=== PATIENT | female | born 1995 | race Hispanic/Latino ===

== ENCOUNTER 2020-07-20 08:16 | Emergency (ER) | payer OTHER ==
[~2020-07-20] VITALS: Ht 170.2 cm; Wt 81.2 kg
[2020-07-20] MEDS ORDERED: ZOLO100T PO (08:24)
[2020-07-20] MEDS ORDERED: TRAZ-189 PO (08:24)
[2020-07-20 09:06] LABS: APPEARANCE, URINE CLEAR (CLEAR); BACTERIA, URINE AUTO NEGATIVE (NEGATIVE); BILIRUBIN, URINE AUTO NEGATIVE (NEGATIVE); BLOOD, URINE BLOOD 3+ (NEGATIVE); COLOR, URINE YELLOW (YELLOW); GLUCOSE, URINE (UA) AUTO NEGATIVE (NEGATIVE); KETONE, URINE AUTO NEGATIVE (NEGATIVE); LEUKOCYTE ESTERASE, URINE AUTO NEGATIVE (NEGATIVE); MUCUS, URINE SMALL (NEGATIVE); NITRITE, URINE AUTO NEGATIVE (NEGATIVE); PROTEIN, URINE AUTO 1+ mg/dL (NEGATIVE); RBC, URINE AUTO 5 /HPF (0-3); SPECIFIC GRAVITY URINE AUTO 1.021 (1.002-1.035); SQUAMOUS EPITHELIAL CELL UR AU 2 /HPF (0-6); UROBILINOGEN, URINE AUTO 0.2 mg/dL (0.0-2.0); WBC, URINE AUTO 0 /HPF (0-3)
[2020-07-20 09:51] LABS: RSV AMPLIFICATION NEGATIVE (NEGATIVE)
[2020-07-20 10:48] VITALS: O2SAT 98
[2020-07-20 11:39] VITALS: BP 121/80
== END 2020-07-20 11:40 | disposition home or self-care (01) ==
LOC: M ED 08:16
DX: O98.511 Other viral diseases complicating pregnancy, first trimester (principal); U07.1 COVID-19; O99.341 Other mental disorders complicating pregnancy, first trimester; F32.9 Major depressive disorder, single episode, unspecified; F41.9 Anxiety disorder, unspecified; Z3A.01 Less than 8 weeks gestation of pregnancy; Z88.0 Allergy status to penicillin; Z79.899 Other long term (current) drug therapy

== ENCOUNTER 2020-07-24 11:00 | Emergency (ER) | payer OTHER ==
[~2020-07-24] VITALS: Ht 170.2 cm; Wt 79.4 kg
[~2020-07-24 11:00] MED LIST: TRAZ-189 PO; ZOLO100T PO
[2020-07-24] MEDS ORDERED: ONDANSETRON 4 MG ORAL DISINTEGRATING TAB PO ONE (11:35)
[2020-07-24] MEDS ORDERED: ONDA4TAB6 PO (12:13)
[2020-07-24 13:15] VITALS: BP 117/57
--- NOTE | 2020-07-25 15:38 | ECGEPIP ---
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
== END 2020-07-24 13:23 | disposition home or self-care (01) ==
LOC: M ED 11:00
DX: O98.511 Other viral diseases complicating pregnancy, first trimester (principal); U07.1 COVID-19; Z3A.01 Less than 8 weeks gestation of pregnancy; O99.341 Other mental disorders complicating pregnancy, first trimester; Z79.899 Other long term (current) drug therapy; Z88.0 Allergy status to penicillin
CPT/HCPCS: 93005; 99284; Q0162

== ENCOUNTER → 2020-08-31 | Outpatient (CLI) | payer OTHER ==
[~2020-08-31] MED LIST changes: +ONDA4TAB6 PO
--- NOTE | 2020-08-31 10:37 | REP ---
INDICATION: DATING US COMPARISON: None. TECHNIQUE: Transabdominal and transvaginal 1st trimester obstetrical ultrasound with color Doppler evaluation. FINDINGS: Retroverted uterus measures 7.9 x 6.2 x 8.1 cm. The endometrial complex demonstrates decidual reaction measuring 28 mm thickness. A gestational sac is identified with mean sac diameter of 16 mm corresponding to 6 weeks 3 days gestational age. No pole or yolk sac currently identified. Bilateral maternal ovaries are normal in appearance and vascularity. Right ovary measures 3.7 x 1.9 x 2.6 cm (RI 0.43). Left ovary measures 3.2 x 2.2 x 2.8 cm (RI 0.56). Small amount of pelvic free fluid is nonspecific. IMPRESSION: Gestational sac without yolk sac or pole. Differential diagnosis includes early as well as blighted ovum/spontaneous in progress. Correlation with serial HCG levels are recommended along with repeat ultrasound as necessary. <Electronically signed by Raghav Meza > 08/31/20 0810
== END ==
LOC: M RAD 09:50
PROVIDERS: ATTEND Obstetrics & Gynecology
DX: Z34.81 Encounter for supervision of other normal pregnancy, first trimester (principal)

== ENCOUNTER 2020-09-02 14:44 | Day surgery (SDC) | payer OTHER ==
[~2020-09-02] VITALS: Ht 170.2 cm; Wt 81.6 kg
[2020-09-02 16:35] LABS: HEMATOCRIT 38.9 % (36.0-47.0); MEAN CORPUSCULAR HEMOGLOBIN 29.9 pg (27.0-33.0); MEAN CORPUSCULAR HGB CONC 33.4 g/dl (32.0-36.5); MEAN CORPUSCULAR VOLUME 89.4 fl (80.0-96.0); PLATELET COUNT, AUTOMATED 352 10^3/uL (150-450); RED BLOOD COUNT 4.35 10^6/uL (4.00-5.40); WHITE BLOOD COUNT 11.8 10^3/uL (4.0-10.0)
[2020-09-02] MEDS ORDERED: propofoL 200 MG/20 ML VIAL As Ordered ONE ×2 (16:36→16:39)
[2020-09-02] MEDS ORDERED: LIDOCAINE 2% 100MG/5ML SDV (FOR ANES.) As Ordered ONE (16:36)
[2020-09-02] MEDS ORDERED: MIDAZOLAM INJ 2MG/2ML VIAL (J2250 PER 1MG) As Ordered ONE (16:36)
[2020-09-02] MEDS ORDERED: dexameTHASONE 4 MG/ML 1ML VIAL (J1100 PER 1MG) As Ordered ONE (16:36)
[2020-09-02] MEDS ORDERED: ONDANSETRON 4MG/2ML VIAL As Ordered ONE (16:36)
[2020-09-02] MEDS ORDERED: fentaNYL 100 MCG/2 ML INJECTION (J3010) As Ordered ONE (16:36)
[2020-09-02] MEDS ORDERED: SUCCINYLCHOLINE 100 MG/5 ML SYRINGE (J0330) As Ordered ONE (16:36)
[2020-09-02] MEDS ORDERED: KETOROLAC 60MG 2ML VIAL As Ordered ONE (16:36)
[2020-09-02] MEDS ORDERED: ACETAMINOPHEN 650 MG SUPP As Ordered ONE (16:36)
[2020-09-02] MEDS ORDERED: OXYTOCIN INJ 10 UNITS/ML VIAL (J2590) As Ordered ONE (16:36)
[2020-09-02] MEDS ORDERED: ROCURONIUM BROMIDE 50 MG/5 ML VIAL As Ordered ONE (16:41)
[2020-09-02 16:51] LABS: BLOOD UREA NITROGEN 6 MG/DL (7-18); CALCIUM LEVEL 8.8 MG/DL (8.5-10.1); CARBON DIOXIDE LEVEL 26 MEQ/L (21-32); CHLORIDE LEVEL 106 MEQ/L (98-107); CREATININE FOR GFR 0.64 MG/DL (0.55-1.30); GLOMERULAR FILTRATION RATE > 60.0 (>60); GLUCOSE, FASTING 110 MG/DL (70-100); POTASSIUM SERUM 3.2 MEQ/L (3.5-5.1); SODIUM LEVEL 139 MEQ/L (136-145)
[2020-09-02] MEDS ORDERED: LR 1,000 ML IV SCH (17:20)
[2020-09-02] MEDS ORDERED: fentaNYL 100 MCG/2 ML INJECTION (J3010) IV PRN (17:20)
[2020-09-02] MEDS ORDERED: HYDROMORPHONE HCL 0.5 MG/ 0.5 ML SYRINGE (J1170 PER 1) IV PRN (17:20)
[2020-09-02] MEDS ORDERED: oxyCODONE 5MG TAB PO PRN (17:20)
[2020-09-02] MEDS ORDERED: ONDANSETRON 4MG/2ML VIAL IV PRN (17:20)
[2020-09-02] MEDS ORDERED: KETOROLAC 30 MG/ML 1ML VIAL IV PRN (17:25)
[2020-09-02 19:37] VITALS: BP 122/73
--- NOTE | 2020-09-06 13:52 | RO ---
OPERATIVE NOTE DATE OF OPERATION: 09/02/2020 PREOPERATIVE DIAGNOSIS: Missed , COVID positive. POSTOPERATIVE DIAGNOSIS: Missed , COVID positive. OPERATION PROPOSED: Suction and curettage. OPERATION PERFORMED: Suction and curettage. SURGEON: Azam Cruz M.D. OBSTETRICIAN AND GYNAECOLOGIST: ANESTHESIA: General. ESTIMATED BLOOD LOSS: Less than 50 cc. DESCRIPTION OF PROCEDURE: After adequate time-out, prepped and draped in the lithotomy position. Bladder drained for 25 cc of clear urine. Acetaminophen suppository 1,300 mg per rectum. No antibiotics were required. Weighted speculum in the vagina. Single tooth tenaculum on the anterior lip of the cervix. Uterus with sound depth of 14 cm, and dilated to a Hegar #10. Curved suction curette applied. Curettage to the cavity was smooth. Uterus placed in anatomical position, well contracted under Pitocin. Patient is O positive. Does not require RhoGAM. Patient was sent to recovery in good condition.
== END 2020-09-02 19:43 | disposition home or self-care (01) ==
LOC: M SDC 14:44
PROVIDERS: ATTEND Obstetrics & Gynecology
DX: O98.511 Other viral diseases complicating pregnancy, first trimester (principal); U07.1 COVID-19; O02.1 Missed abortion; Z3A.01 Less than 8 weeks gestation of pregnancy
CPT/HCPCS: 36415; 59820; 80048; 85027; 86850; 86900; 86901; 88305; J0330; J1100; J1885; J2250; J2405; J2590; J3010

== ENCOUNTER 2020-12-12 08:11 | Emergency (ER) | payer OTHER ==
[~2020-12-12] VITALS: Ht 170.2 cm; Wt 82.1 kg
[2020-12-12] MEDS ORDERED: ACET-683 PO (08:25)
[2020-12-12] MEDS ORDERED: SERT50TA29 (08:25)
--- NOTE | 2020-12-12 09:00 | REP ---
INDICATION: trauma, popping/pain COMPARISON: None. TECHNIQUE: Internal rotation, external rotation, and Y view. FINDINGS: No acute fracture or dislocation. The acromioclavicular and glenohumeral joints are intact. No periarticular calcifications or degenerative changes are appreciated. Sub acromial space is normal. Surrounding soft tissues are unremarkable. IMPRESSION: Normal right shoulder radiographs. No acute fracture or dislocation. <Electronically signed by Raghav Meza > 12/12/20 0862
[2020-12-12] MEDS ORDERED: NAPR-837 PO (09:55)
[2020-12-12 10:01] VITALS: BP 129/86
== END 2020-12-12 10:03 | disposition home or self-care (01) ==
LOC: M ED 08:11
DX: S43.421A Sprain of right rotator cuff capsule, initial encounter (principal); X58.XXXA Exposure to other specified factors, initial encounter; Y92.099 Unspecified place in other non-institutional residence as the place of occurrence of the external cause; Y93.41 Activity, dancing; Y99.9 Unspecified external cause status; F41.9 Anxiety disorder, unspecified; F32.9 Major depressive disorder, single episode, unspecified; G47.00 Insomnia, unspecified; Z79.899 Other long term (current) drug therapy; Z88.0 Allergy status to penicillin

== ENCOUNTER 2021-03-28 16:19 | Emergency (ER) | payer OTHER ==
[~2021-03-28] VITALS: Ht 170.2 cm; Wt 81.7 kg
[~2021-03-28 16:19] MED LIST changes: +ACET-683 PO; +NAPR-837 PO; +SERT50TA29
[2021-03-28] MEDS ORDERED: ZOLO100T (16:39)
[2021-03-28] MEDS ORDERED: PREN27TA3 (16:39)
[2021-03-28] MEDS ORDERED: B-650TAB2 (16:39)
[2021-03-28] MEDS ORDERED: UNIS25TA3 (16:39)
[2021-03-28 17:27] LABS: HEMATOCRIT 38.8 % (36.0-47.0); HEMOGLOBIN 13.3 g/dl (12.0-15.5); MEAN CORPUSCULAR HEMOGLOBIN 30.2 pg (27.0-33.0); MEAN CORPUSCULAR HGB CONC 34.3 g/dl (32.0-36.5); MEAN CORPUSCULAR VOLUME 88.2 fl (80.0-96.0); PLATELET COUNT, AUTOMATED 342 10^3/uL (150-450); WHITE BLOOD COUNT 10.6 10^3/uL (4.0-10.0)
[2021-03-28] MEDS ORDERED: ONDANSETRON 4 MG ORAL DISINTEGRATING TAB PO ONE (20:45)
[2021-03-29 03:17] LABS: APPEARANCE, URINE HAZY (CLEAR); BACTERIA, URINE AUTO NEGATIVE (NEGATIVE); BILIRUBIN, URINE AUTO NEGATIVE (NEGATIVE); BLOOD, URINE BLOOD 2+ (NEGATIVE); COLOR, URINE YELLOW (YELLOW); GLUCOSE, URINE (UA) AUTO NEGATIVE (NEGATIVE); KETONE, URINE AUTO TRACE mg/dL (NEGATIVE); LEUKOCYTE ESTERASE, URINE AUTO TRACE (NEGATIVE); MUCUS, URINE SMALL (NEGATIVE); NITRITE, URINE AUTO NEGATIVE (NEGATIVE); PROTEIN, URINE AUTO 1+ mg/dL (NEGATIVE); RBC, URINE AUTO 3 /HPF (0-3); SPECIFIC GRAVITY URINE AUTO 1.031 (1.002-1.035); SQUAMOUS EPITHELIAL CELL UR AU 4 /HPF (0-6); WBC, URINE AUTO 7 /HPF (0-3)
[2021-03-29] MEDS ORDERED: NITROFURANTOIN (MACROBID) 100 MG CAP PO ONE (03:30)
[2021-03-29] MEDS ORDERED: NITR-67 PO (03:32)
[2021-03-29 03:48] VITALS: BP 122/80
[2021-03-29 04:56] LABS: GC DNA AMPLIFICATION NEGATIVE (NEGATIVE)
== END 2021-03-29 03:57 | disposition home or self-care (01) ==
LOC: M ED 16:19
DX: O23.42 Unspecified infection of urinary tract in pregnancy, second trimester (principal); O20.8 Other hemorrhage in early pregnancy; R00.0 Tachycardia, unspecified; O99.342 Other mental disorders complicating pregnancy, second trimester; O99.322 Drug use complicating pregnancy, second trimester; Z3A.16 16 weeks gestation of pregnancy; Z88.0 Allergy status to penicillin
CPT/HCPCS: 76815; 81001; 85027; 86850; 86900; 86901; 87210; 87661; 93005; 99284; Q0162

== ENCOUNTER 2021-09-02 11:48 | Inpatient (IN) | payer OTHER ==
[~2021-09-02] VITALS: Ht 170.2 cm; Wt 90.8 kg
[2021-09-02] VITALS (24 sets, daily range): BP systolic 108–159; BP diastolic 67–98
[~2021-09-02 11:48] MED LIST changes: +B-650TAB2; +NITR-67 PO; +PREN27TA3; +UNIS25TA3; +ZOLO100T
[2021-09-02] MEDS ORDERED: OXYTOCIN INJ 10 UNITS/ML VIAL (J2590) IV PRN (12:10)
[2021-09-02] MEDS ORDERED: LACTATED RINGER'S 1000 ML IV ONE (12:10)
[2021-09-02] MEDS ORDERED: OXYTOCIN DRIP 30 UNITS in IV 1 EA IV PRN ×4 (12:10)
[2021-09-02] MEDS ORDERED: HOME MED LIST COMPLETE! XX SCH (13:00)
[2021-09-02 13:30] LABS: HEMATOCRIT 35.1 % (36.0-47.0); HEMOGLOBIN 11.6 g/dl (12.0-15.5); MEAN CORPUSCULAR HEMOGLOBIN 28.4 pg (27.0-33.0); MEAN CORPUSCULAR VOLUME 85.8 fl (80.0-96.0); PLATELET COUNT, AUTOMATED 264 10^3/uL (150-450); RED BLOOD COUNT 4.09 10^6/uL (4.00-5.40); WHITE BLOOD COUNT 12.9 10^3/uL (4.0-10.0)
[2021-09-02] MEDS: LR 1,000 ML IV SCH ×2 (14:26→20:10)
[2021-09-02] MEDS ORDERED: LR 500 ML IV PRN (17:00)
[2021-09-02] MEDS ORDERED: diphenhydrAMINE 50MG/ML VIAL (J1200) IV PRN (17:00)
[2021-09-02] MEDS ORDERED: ONDANSETRON 4MG/2ML VIAL IV PRN (17:00)
[2021-09-02] MEDS ORDERED: FENTANYL/ROPIVACAINE/NACL BAG 100 ML EPIDURAL SCH (17:00)
[2021-09-02] MEDS ORDERED: NALOXONE INJ 0.4MG/1ML VIAL (J2310 PER 1MG) IV PRN (17:00)
[2021-09-02] MEDS ORDERED: EPIDURAL/PCA KEYS XX PRN (17:00)
[2021-09-02] MEDS ORDERED: ePHEDrine INJ 50 MG/ML VIAL IVP PRN (17:00)
[2021-09-02] MEDS ORDERED: FENTANYL 2MCG/ML ROPIVACAINE 0.2% IN 0.9% NACL 100ML IVBAG As Ordered ONE (17:02)
[2021-09-02] MEDS ORDERED: DOCUSATE SODIUM 100MG CAPSULE PO PRN (22:20)
[2021-09-02] MEDS ORDERED: DIBUCAINE 1% OINTMENT 30GM TOP PRN (22:20)
[2021-09-02] MEDS ORDERED: METHYLERGONOVINE MALEATE 0.2 MG TAB PO PRN (22:20)
[2021-09-02] MEDS ORDERED: LR 1,000 ML IV SCH (22:20)
[2021-09-02] MEDS ORDERED: ACETAMINOPHEN 650 MG SUPP PR PRN (22:20)
[2021-09-02] MEDS ORDERED: ANUSOL HC CREAM 30GM TOP PRN (22:20)
[2021-09-02] MEDS ORDERED: MEASLES,MUMPS,RUBELLA VACCINE INJ (MMR-II) (90707) SC SCH (22:20)
[2021-09-02] MEDS ORDERED: OXYTOCIN DRIP 30 UNITS in IV 1 EA IV SCH (22:20)
[2021-09-02] MEDS ORDERED: OXYTOCIN INJ 10 UNITS/ML VIAL (J2590) IV ONE (22:20)
[2021-09-02] MEDS ORDERED: OXYTOCIN DRIP 30 UNITS in IV 1 EA IV ONE (22:20)
[2021-09-02] MEDS ORDERED: ACETAMINOPHEN TAB 650MG DOSE (2X325MG) PO PRN (22:20)
[2021-09-02] MEDS ORDERED: MOM 30ML SUSPENSION UDC PO PRN (22:20)
[2021-09-02] MEDS ORDERED: RHOGAM 300 MCG (1500 IU) INJ (J2790) IM SCH (22:20)
[2021-09-02 22:40] LABS: CORD GAS ABE A -4.9; CORD GAS O2 SAT A 50.2 %; CORD GAS PCO2 A 47.2 mmHg; CORD GAS PH A 7.287 UNITS; CORD GAS PO2 A 21.7 mmHg; CORD GAS SBC A 19.3 MEQ/L; CORD GAS TCO2 A 23.5 MEQ/L
[2021-09-02 22:41] LABS: CORD GAS ABE V -4.5; CORD GAS HCO3 V 20.5 MEQ/L; CORD GAS O2 SAT V 72.4 %; CORD GAS PCO2 V 38.3 mmHg; CORD GAS PH V 7.347 UNITS; CORD GAS PO2 V 30.5 mmHg; CORD GAS SBC V 20.1 MEQ/L; CORD GAS TCO2 V 21.7 MEQ/L
[2021-09-02] MEDS: ACETAMINOPHEN 500 MG TAB PO PRN (22:53)
[2021-09-02] MEDS ORDERED: FIORICET TAB PO PRN (23:30)
[2021-09-03 01:02] VITALS: BP 117/67
[2021-09-03] MEDS: LR 1,000 ML IV SCH ×2 (04:10→20:10)
[2021-09-03 06:00] VITALS: BP 125/71
[2021-09-03 07:05] LABS: HEMATOCRIT 32.7 % (36.0-47.0); HEMOGLOBIN 10.7 g/dl (12.0-15.5); MEAN CORPUSCULAR HEMOGLOBIN 28.3 pg (27.0-33.0); MEAN CORPUSCULAR HGB CONC 32.7 g/dl (32.0-36.5); MEAN CORPUSCULAR VOLUME 86.5 fl (80.0-96.0); PLATELET COUNT, AUTOMATED 196 10^3/uL (150-450); RED BLOOD COUNT 3.78 10^6/uL (4.00-5.40); WHITE BLOOD COUNT 15.6 10^3/uL (4.0-10.0)
[2021-09-03] MEDS: PRENATAL VITAMINS CHEWABLE TABLET PO SCH (08:05)
[2021-09-03] MEDS: SERTRALINE HCL 50 MG TAB PO SCH (08:05)
[2021-09-03] MEDS: IBUPROFEN 600MG TAB PO PRN ×2 (14:15→20:11)
[2021-09-03] MEDS: ACETAMINOPHEN 500 MG TAB PO PRN (15:17)
[2021-09-03 18:00] VITALS: BP 109/62
[2021-09-04 06:00] VITALS: BP 118/62
[2021-09-04] MEDS: IBUPROFEN 600MG TAB PO PRN (06:31)
[2021-09-04] MEDS ORDERED: SERT50TA29 PO (08:39)
[2021-09-04] MEDS ORDERED: IBUP-1022 PO (08:39)
[2021-09-04] MEDS ORDERED: COLA100C5 PO (08:39)
[2021-09-04] MEDS ORDERED: ACET-683 PO (08:39)
[2021-09-04] MEDS: SERTRALINE HCL 50 MG TAB PO SCH (08:40)
[2021-09-04] MEDS: PRENATAL VITAMINS CHEWABLE TABLET PO SCH (08:40)
[2021-09-04] MEDS: ACETAMINOPHEN 500 MG TAB PO PRN (08:41)
== END 2021-09-04 18:25 | disposition home or self-care (01) | DRG 807 ==
LOC: M LDO 11:48 → M LDI 12:05 → M OBS 09-03 01:00
PROVIDERS: ADMIT Obstetrics & Gynecology; ATTEND Obstetrics & Gynecology
PROC: 10E0XZZ Delivery of Products of Conception, External Approach (ICD-10-PCS; principal; 2021-09-02)
PROC: 3E033VJ Introduction of Other Hormone into Peripheral Vein, Percutaneous Approach (ICD-10-PCS; 2021-09-02)
PROC: 10907ZC Drainage of Amniotic Fluid, Therapeutic from Products of Conception, Via Natural or Artificial Opening (ICD-10-PCS; 2021-09-02)
DX: O80 Encounter for full-term uncomplicated delivery (principal); Z37.0 Single live birth; Z3A.39 39 weeks gestation of pregnancy